=== PATIENT | female | born 1960 | race Caucasian/White ===

== ENCOUNTER 2018-01-21 09:32 | Day surgery (SDC) | payer MEDICAID ==
[~2018-01-21] VITALS: Ht 170.2 cm; Wt 78.2 kg
--- NOTE | ~2018-01-21 | OP ---
PATIENT NAME: ROBERT REY MEDICAL RECORD: [id number] :62 LOCATION:[facility] ADMISSION DATE: SURGEON: TERESSA DRAPER MD DATE OF OPERATION: 01/21/2018 PROCEDURE: EGD with biopsy. REFERRING PHYSICIAN: Giovanni Gasca MD INDICATIONS: Ms. Rey is a pleasant 57-year-old woman who has had symptoms of heartburn, nausea, epigastric abdominal pain, and diarrhea. She has been present since 2012. She takes omeprazole 20 mg daily, which helps control her heartburn. She is having no symptoms of dysphagia. Her diarrhea has been present since her cholecystectomy. She was provided prescription for cholestyramine, took one packet, did not have a bowel movement for 2 days, and stopped taking it. She presents for outpatient EGD. PREMEDICATIONS: Total IV anesthesia (history of brain aneurysm), propofol 100 mg. INSTRUMENT: Olympus video gastroscope. PROCEDURE AND FINDINGS: After receiving informed consent, Ms. Rey's posterior pharynx was anesthetized with Cetacaine spray, placed in left lateral decubitus position, sedated as per anesthesia. After achieving an adequate level of sedation, gastroscope was introduced per orally and advanced to duodenum without difficulty. The esophageal mucosa was without erythema, ulcers, strictures, masses; appeared normal down the GE junction. Small hiatal hernia was present. Gastric mucosa was notable for mild prepyloric and antral erythema. Antral biopsies were obtained to rule out Helicobacter pylori. No lesions were seen in cardia, fundus, body of the stomach, or antrum. Pylorus was patent and competent. Duodenal mucosa was without erythema or ulcers, appeared normal to the second portion. Biopsies were obtained from second portion of duodenum to rule out celiac disease. The gastroscope was then withdrawn. Ms. Rey tolerated the procedure well. No immediate complications. ASSESSMENT: 1. Small hiatal hernia. 2. Mild gastritis. Rule out H. pylori. RECOMMENDATIONS: 1. Followup histopathology. 2. Amylase and lipase level (recent liver function tests were normal). 3. Decrease cholestyramine dose to half a packet every other day as I suspect she has a bile salt diarrhea. 4. Colonoscopy as scheduled. TRANSINT:[id number] Voice Confirmation ID: [id number] DOCUMENT ID: [id number] OPERATIVE REPORT [id number] ROBERT REY TERRI MD at 1018 CC: [id number] DICTATION DATE: 01/21/18 1341 PEDIATRIC CNS: 01/21/18 1426 [facility] 01/21/18 [id number] [place] [address]
[2018-01-21 09:59] LABS: BASOPHILS 0.7 % (0-2); EOSINOPHILS 2.8 % (0-7); HEMATOCRIT 41.9 % (36.0-48.0); HEMOGLOBIN 14.4 g/dL (12-16); IMMATURE GRANULOCYTES 0.3 % (0-5); LYMPHOCYTES 42.4 % (15-50); MCH 32.1 pg (26.0-34.0); MCHC 34.4 g/dL (31.0-37.0); MCV 93.5 fL (80.0-100.0); MEAN PLATELET VOLUME 9.8 fL (7.4-10.4); MONOCYTES 4.6 % (2-11); NEUTROPHILS 49.2 % (40-80); PLATELET COUNT 210 10x3/uL (130-400); RBC 4.48 10x6/uL (4.00-5.40); RDW 14.4 % (11.5-14.5); WBC 9.5 10x3/uL (4.8-10.8)
[2018-01-21 10:14] LABS: ANION GAP 10.9 mmol/L (8-16); CALCIUM 9.1 mg/dL (8.5-10.1); CARBON DIOXIDE 28.5 mmol/L (21.0-32.0); CREATININE - SERUM 1.3 mg/dL (0.6-1.3); POTASSIUM - SERUM 4.4 mmol/L (3.5-5.1)
[2018-01-21] MEDS ORDERED: EXFORGE 5-320 M1 TAB PO (10:52)
[2018-01-21] MEDS ORDERED: LIPITOR40 MG PO (10:52)
[2018-01-21] MEDS ORDERED: OMEPRAZOLE40 MG PO (10:52)
[2018-01-21 11:02] VITALS: Ht 170.2 cm; Wt 78.2 kg
== END 2018-01-21 14:20 | disposition home or self-care (01) ==
LOC: D.OPS 09:32
PROVIDERS: Anesthesiology
DX: R10.13 Epigastric pain (principal); R11.0 Nausea; R19.7 Diarrhea, unspecified; K44.9 Diaphragmatic hernia without obstruction or gangrene; K29.70 Gastritis, unspecified, without bleeding; Z01.812 Encounter for preprocedural laboratory examination

== ENCOUNTER 2018-03-16 13:19 | Day surgery (SDC) | payer MEDICAID ==
[~2018-03-16] VITALS: Ht 170.2 cm; Wt 78.2 kg
--- NOTE | ~2018-03-16 | OP ---
PATIENT NAME: ROBERT REY MEDICAL RECORD: [id number] :62 LOCATION:[facility] ADMISSION DATE: SURGEON: TERESSA DRAPER MD DATE OF OPERATION: 03/16/2018 PROCEDURE: Colonoscopy with biopsy and polypectomy. REFERRING PHYSICIAN: Giovanni Gasca MD INDICATIONS: Ms. Rey is a very pleasant 57-year-old woman with a history of heartburn, nausea, abdominal pain, and diarrhea. She has had pronounced diarrhea since her cholecystectomy. She has had some relief using small doses of cholestyramine (Questran). She had an EGD on 01/21/2018 with finding showing a small hiatal hernia and H. pylori negative gastritis. Duodenal biopsies were negative for celiac disease. She presents for outpatient colonoscopy. PREMEDICATIONS: Total IV anesthesia (history of brain aneurysm and status post coil placement), propofol 200 mg. INSTRUMENT: Brandtree video colonoscope, pediatric. PROCEDURE AND FINDINGS: After receiving informed consent, Ms. Rey was placed in left lateral decubitus position, sedated as per anesthesia. After achieving an adequate level of sedation, digital rectal exam was performed that showed no external hemorrhoidal tags, fissures or fistulas, normal sphincter tone, no palpable rectal masses. Colonoscope was introduced per rectally and advanced to the cecum without difficulty. The terminal ileum was intubated, and the distal small bowel mucosa was without erythema or ulcers. Biopsies were taken from the terminal ileum. As the colonoscope was withdrawn, careful inspection was made of the [place] of the colon. Overall mucosa had normal vascular and fold pattern. There was minimal patchy erythema in the proximal ascending colon and the ascending colon biopsies were obtained to rule out microscopic colitis. In the distal ascending colon was a 0.3-cm sessile polyp along the fold that was removed with hot biopsy forcep technique. During the procedure, stool was collected for studies. Retroflexion in the rectum showed mild internal hemorrhoids. A [id number] prep was present. Ms. Rey tolerated the procedure well. No immediate complications. Withdrawal time was 8 minutes. ASSESSMENT: 1. Normal terminal ileum, status post biopsy. 2. Minimal patchy erythema involving the proximal ascending colon, possibly prep related, status post biopsy, rule out microscopic colitis. 3. Distal ascending colon polyp status post polypectomy. 4. Mild internal hemorrhoids. 5. 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 RECOMMENDATIONS: 1. Follow up histopathology. 2. Avoid aspirin, nonsteroidal anti-inflammatory drugs, and NERI-2 inhibitors 14 days post polypectomy. 3. Prescription for Librax one p.o. every 4-6 hours p.r.n. abdominal cramping pain. 4. Continue to use cholestyramine as needed. OPERATIVE REPORT [id number] ROBERT REY 5. Follow up results of XTAG studies. 6. Surveillance colonoscopy in 3 years. TRANSINT:[id number] Voice Confirmation ID: [id number] DOCUMENT ID: [id number] TERESSA DRAPER MD at 1832 CC: [id number] DICTATION DATE: 03/16/18 1523 ACCOUNTS PAYABLE REPRESENTATIVE: 03/16/18 1600 [facility] 03/16/18 [id number] [place] [address]
[~2018-03-16 13:19] MED LIST: EXFORGE 5-320 M1 TAB PO; LIPITOR40 MG PO; OMEPRAZOLE40 MG PO
[2018-03-16 13:48] LABS: HEMATOCRIT 41.2 % (36.0-48.0); HEMOGLOBIN 14.4 g/dL (12-16); MCH 32.4 pg (26.0-34.0); MCV 92.8 fL (80.0-100.0); MEAN PLATELET VOLUME 9.7 fL (7.4-10.4); RBC 4.44 10x6/uL (4.00-5.40); RDW 14.5 % (11.5-14.5); WBC 9.5 10x3/uL (4.8-10.8)
[2018-03-16] MEDS ORDERED: BAYER CHEWABLE81 MG PO (13:55)
[2018-03-16 14:04] VITALS: Ht 170.2 cm; Wt 78.2 kg
[2018-03-16 16:18] LABS: AMYLASE - SERUM 49 U/L (25-115); LIPASE 162 U/L (73-393)
== END 2018-03-16 16:30 | disposition home or self-care (01) ==
LOC: D.OPS 13:19
PROVIDERS: Anesthesiology; Internal Medicine Gastroenterology
DX: K52.89 Other specified noninfective gastroenteritis and colitis (principal); K63.5 Polyp of colon

== ENCOUNTER → 2019-11-02 07:30 | Outpatient (CLI) | payer MEDICAID ==
[2018-03-16 14:04] VITALS: BMI 27.0
[~2019-11-02 07:30] MED LIST changes: +BAYER CHEWABLE81 MG PO
== END | disposition home or self-care (01) ==
LOC: D.CT 07:30
PROVIDERS: ATTEND Internal Medicine Cardiovascular Disease
DX: I71.6 Thoracoabdominal aortic aneurysm, without rupture (principal)

== ENCOUNTER → 2020-12-04 07:17 | Outpatient (CLI) | payer MEDICAID ==
[2018-03-16 14:04] VITALS: BMI 27.0
[~2020-12-04 07:17] MED LIST changes: +ALIGN4 MG PO; +COLESTID1 GM PO; +LOSARTAN-HCTZ1 EAC1 PO; +MAG-OX 400 MG400 MG PO; +NORMODYNE / TR100 MG PO; +OMEPRAZOLE20 M1 PO; -OMEPRAZOLE40 MG PO; +PEPCID AC20 MG PO; +VITAMIN B-12100 MCG PO; +VITAMIN D325 MC1 PO
== END | disposition home or self-care (01) ==
LOC: D.NM 07:17
PROVIDERS: ATTEND Internal Medicine Gastroenterology
DX: R11.0 Nausea (principal); R10.13 Epigastric pain; K21.9 Gastro-esophageal reflux disease without esophagitis